=== PATIENT | male | born 1960 | race Caucasian/White ===

== ENCOUNTER 2019-03-23 20:30 | Emergency (ER) | payer MEDICAID, OTHER ==
[2019-03-23] MEDS: HYDROCODONE/APAP (5/325) TAB PO (23:19)
== END 2019-03-24 00:54 | disposition home or self-care (01) ==
LOC: FTE 03-24 00:54
DX: S46.911A Strain of unspecified muscle, fascia and tendon at shoulder and upper arm level, right arm, initial encounter (principal); X58.XXXA Exposure to other specified factors, initial encounter; Y92.89 Other specified places as the place of occurrence of the external cause
CPT/HCPCS: 72040; 73020; 99284-25

== ENCOUNTER 2019-04-06 19:50 | Emergency (ER) | payer MEDICAID | END 2019-04-06 20:48 | disposition home or self-care (01) | LOC: FTE 19:50 | DX: M77.9 Enthesopathy, unspecified (principal) | CPT/HCPCS: 99283; Z7502 ==